=== PATIENT | female | born 1955 | race Caucasian/White ===

== ENCOUNTER → 2016-10-05 | Outpatient (CLI) | payer BC | LOC: LAB 19:41 | PROVIDERS: ATTEND Nurse Practitioner Family | DX: R30.0 Dysuria (principal) | CPT/HCPCS: 87088 ==

== ENCOUNTER → 2017-03-04 | Outpatient (CLI) | payer BC ==
[~2017-03-04] MED LIST: CEPH500T PO; ONDA4TAB11 PO; ROPI0.5T2; SULF-222 PO
--- NOTE | 2017-03-07 15:33 | Diagnostic Imaging Report ---
EXAMINATION: Bilateral screening mammogram 2D views with tomosynthesis. The current study was also evaluated with a Computer Aided Detection (CAD) system. INDICATION: Screening. PERSONAL HISTORY: No current complaints stated on the questionnaire. COMPARISON: 02/17/2016. FINDINGS: The breasts are composed of heterogeneously dense parenchyma which may decrease mammographic sensitivity. Allowing for technique and positional differences, no suspicious change is seen. IMPRESSION: Dense breasts with no definite change. ACR BI-RADS Category 2: Benign findings. Result letter will be mailed to the patient. Note: At least 10% of breast cancer is not imaged by mammography. Dictated by: Dictated on workstation # [id number]
== END ==
LOC: RAD 15:44
PROVIDERS: ATTEND Internal Medicine
DX: Z12.31 Encounter for screening mammogram for malignant neoplasm of breast (principal)
CPT/HCPCS: 77067

== ENCOUNTER 2017-03-19 19:08 | Emergency (ER) | payer BC ==
[~2017-03-19] VITALS: Ht 162.6 cm; Wt 48.1 kg
[2017-03-19] MEDS ORDERED: ROPI0.5T2 (19:57)
[2017-03-19 20:05] LABS: BILIRUBIN,URINE NEGATIVE (NEGATIVE); KETONES,URINE NEGATIVE (NEGATIVE); LEUKOCYTE ESTERASE ,URINE 3+ (NEGATIVE); NITRITE,URINE NEGATIVE (NEGATIVE); PH,URINE 6 (5-9); PROTEIN,URINE NEGATIVE (NEGATIVE); UROBILINOGEN,URINE NORMAL (NORMAL)
[2017-03-19] MEDS ORDERED: ACETAMINOPHEN 500 MG TAB (TYLENOL) PO ONE (20:15)
[2017-03-19] MEDS ORDERED: ONDANSETRON 4 MG (ZOFRAN) ORAL DISSOLVE TAB PO ONE (20:15)
[2017-03-19] MEDS ORDERED: TRIM/SULFAMETH 160/800 (SEPTRA DS) TAB PO STA (21:19)
[2017-03-19] MEDS ORDERED: SULF-222 PO (21:28)
--- NOTE | 2017-03-19 21:29 | ED GU-Female ---
General Chief Complaint: -Female Stated Complaint: UTI SYMPTOMS Nursing Triage Note: PAINFUL URINATION, DIFFICULTY EMPTYING BLADDER, GENERALIZED MALAISE Nursing Sepsis Screen: No Definite Risk Source: patient Exam Limitations: no limitations History of Present Illness Time seen by provider: 21:10 Initial Comments Here with report of bladder pain with some dysuria and just generally doesn't feel well. Did have some mild nausea but no vomiting. She took some ibuprofen earlier which helped a little. States this is typically how she feels when she has a urinary tract infection. Denies breathing problems or diarrhea. Timing/Duration: yesterday, getting worse Severity/Quality: moderate, aching, burning Location: suprapubic, urethral Radiation: urethral Activities at Onset: none Modifying Factors: Improves With Analgesics Associated Symptoms: abdominal pain, dysuria, fever/chills, No lower back pain , nausea/vomiting, urinary frequency Allergies and Home Medications Allergies Coded Allergies: No Known Drug Allergies (Unverified , 03/19/17) Home Medications Ropinirole HCl 0.5 Mg Tablet, (Reported) Constitutional: see HPI, No chills, fever EENTM: no symptoms reported Respiratory: no symptoms reported Cardiovascular: no symptoms reported Gastrointestinal: see HPI Genitourinary: see HPI Musculoskeletal: no symptoms reported, No back pain, No muscle pain Skin: no symptoms reported Past Qqgjcbv-Bujwqw-Oyypcn Hx Patient Social History Alcohol Use: Denies Use Recreational Drug Use: No Smoking Status: Never a Smoker 2nd Hand Smoke Exposure: No Recent Foreign Travel: No Contact w/Someone Who Travel: No Recent Infectious Disease Expo: No Recent Hopitalizations: No Immunizations Up To Date Tetanus Booster (TDap): Unknown Seasonal Allergies Seasonal Allergies: No Surgeries History of Surgeries: Yes (VSD REPAIR, LUMBAR LAMINECTOMY) Surgeries: Adenoidectomy, Cardiac, Orthopedic, Tonsillectomy Respiratory History of Respiratory Disorde: No Cardiovascular History of Cardiac Disorders: Yes (VSD REPAIR) Neurological History of Neurological Disord: No 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 System [employer] History: Menopausal Genitourinary History of Genitourinary Disor: Yes Genitourinary Disorders: UTI-Chronic Gastrointestinal History of Gastrointestinal Di: No Musculoskeletal History of Musculoskeletal Dis: Yes (RESTLESS LEGS) Endocrine History of Endocrine Disorders: No HEENT History of HEENT Disorders: No Cancer History of Cancer: No Psychosocial History of Psychiatric Problem: No Integumentary History of Skin or Integumenta: No Blood Transfusions History of Blood Disorders: No Reviewed Nursing Assessment Reviewed/Agree w Nursing PMH: Yes Family Medical History Significant Family History: No Pertinent Family Hx Physical Exam Vital Signs Vital Sign - Last 12Hours 03/19/17 19:58 Temp 98.1 Pulse 61 Resp 16 B/P (MAP) 117/78 Pulse Ox 98 O2 Delivery Room Air Capillary Refill : Less Than 3 Seconds General Appearance: WD/WN, no apparent distress Neck: full range of motion, supple Cardiovascular: regular rate, rhythm, no murmur Respiratory: lungs clear, normal breath sounds Gastrointestinal: soft, tenderness (mild suprapubic tenderness) Back: normal inspection, no CVA tenderness, no vertebral tenderness Neurologic/Psychiatric: alert, oriented x 3 Skin: normal color, warm/dry Progress/Results/Core Measures Results/Orders Lab Results Laboratory Tests Test 03/19/17 19:55 Range/Units Urine Color YELLOW Urine Clarity SLIGHTLY CLOUDY Urine pH 6 5-9 Urine Specific [place] 1.020 1.016-1.022 Urine Protein NEGATIVE NEGATIVE Urine Glucose (UA) NEGATIVE NEGATIVE Urine Ketones NEGATIVE NEGATIVE Urine Nitrite NEGATIVE NEGATIVE Urine Bilirubin NEGATIVE NEGATIVE Urine Urobilinogen NORMAL NORMAL MG/DL Urine Leukocyte Esterase 3+ H NEGATIVE Urine RBC (Auto) NEGATIVE NEGATIVE Urine RBC NONE /HPF Urine WBC 10-25 H /HPF Urine Squamous Epithelial Cells 5-10 /HPF Urine Crystals NONE /LPF Urine Bacteria TRACE /HPF Urine Casts NONE /LPF Urine Mucus NEGATIVE /LPF Urine Culture Indicated YES My Orders Orders - THOMAS VALDOVINOS MD Ua Culture If Indicated (03/19/17 19:53) Ondansetron Oral Dissolve Tab (Zofran (03/19/17 20:15) Acetaminophen Tablet (Tylenol Tablet) (03/19/17 20:15) Urine Culture (03/19/17 19:55) Sulfamethoxazole/Trimet Ds Tab (Bactrim (03/19/17 21:19) Medications Given in ED Current Medications Medications Dose Ordered Sig/Edita Route Start Time Stop Time Status Last Admin Dose Admin Acetaminophen 1,000 mg ONCE ONCE PO 03/19/17 20:15 03/19/17 20:16 DC 03/19/17 20:11 1,000 MG Vital Signs/I&O Vital Sign - Last 12Hours 10/7/17 10/7/17 19:58 20:11 Temp 98.1 98.1 Pulse 61 Resp 16 B/P (MAP) 117/78 Pulse Ox 98 O2 Delivery Room Air Blood Pressure Mean: 91 Progress Note : Progress Note Seen and evaluated. Bactrim DS one tab by mouth. Discharged home with return precautions. Patient verbalize understanding instructions and agreement with plan. Departure Impression Impression: Primary Impression: Urinary tract infection Qualified Codes: N30.00 - Acute cystitis without hematuria Disposition: HOME, SELF-CARE Condition: Stable Departure-Patient Inst. Referrals: JANET GARCÍA MD (PCP/Family) Primary Care Physician Patient Instructions: Urinary Tract Infection, Adult (DC) Add. Discharge Instructions: All discharge instructions reviewed with patient and/or family. Voiced understanding. Take medications as directed. Follow-up with your Dr. in a few days for recheck. Return for worsening, fever, vomiting, weakness, breathing problems or other concerns as needed. You may take Tylenol and/or ibuprofen as needed for fever or pain. Package directions. Drink plenty of fluids. Scripts Sulfamethoxazole/Trimethoprim (Sulfamethoxazole-Tmp Ds Tablet) 1 Each Tablet 1 EACH PO BID, #14 TAB 0 Refills Prov: THOMAS VALDOVINOS MD 03/19/17 THOMAS VALDOVINOS MD Mar 19, 2017 21:29
[2017-03-19] MEDS ORDERED: ONDA4TAB11 PO (21:31)
[2017-03-19 21:32] VITALS: BP 117/78
== END 2017-03-19 21:32 | disposition home or self-care (01) ==
LOC: EDUNIT# 19:08 → ER 19:10
DX: N39.0 Urinary tract infection, site not specified (principal); Q21.0 Ventricular septal defect; Z90.89 Acquired absence of other organs; Z98.1 Arthrodesis status
CPT/HCPCS: 81000; 87088; 99283

== ENCOUNTER 2017-03-22 02:50 | Emergency (ER) | payer BC ==
[~2017-03-22] VITALS: Ht 162.6 cm; Wt 48.1 kg
[~2017-03-22 02:50] MED LIST changes: -CEPH500T PO
--- NOTE | 2017-03-22 03:11 | ED GU-Female ---
General Chief Complaint: -Female Stated Complaint: UTI GETTING WORSE Source: patient, old records Exam Limitations: no limitations History of Present Illness Time seen by provider: 03:02 Initial Comments Patient presents to ER by private conveyance with a chief complaint that 3 days prior she was seen in the ER for urinary symptoms and was treated with Bactrim for UTI. She feels that she is not any better still has some nausea without vomiting and a headache. She is unable to take any time off from her work because of a crunch and does not feel that she has improved much. She does not think Bactrim is working. She was going to go see Dr. García, her PCP but could not wait. She has no shortness of breath, cough, chest pain, abdominal pain, weakness, fevers, diarrhea, constipation. She still has mild dysuria. Allergies and Home Medications Allergies Coded Allergies: No Known Drug Allergies (Unverified , 03/19/17) Home Medications Ondansetron 4 Mg Tab.rapdis, 4 MG PO Q6H PRN for NAUSEA/VOMITING, #8 Ref 0 Prescribed by: THOMAS VALDOVINOS on 03/19/172130 Ropinirole HCl 0.5 Mg Tablet, (Reported) Sulfamethoxazole/Trimethoprim 1 Each Tablet, 1 EACH PO BID, #14 Ref 0 Prescribed by: THOMAS VALDOVINOS on 03/19/172127 Constitutional: No chills, No diaphoresis, No fever, No malaise EENTM: No ear pain, No eye pain Respiratory: No cough, No short of breath Cardiovascular: No chest pain, No palpitations Gastrointestinal: No abdominal pain, No constipation, No diarrhea, nausea, No vomiting Genitourinary: denies burning, denies discharge, dysuria : No Musculoskeletal: No back pain, No joint pain, No joint swelling Skin: No pruritus, No rash Psychiatric/Neurological: Headache, Denies Numbness, Denies Paresthesia Past Uffqssv-Bcgyit-Rmiptk Hx Patient Social History Alcohol Use: Denies Use Recreational Drug Use: No Smoking Status: Never a Smoker 2nd Hand Smoke Exposure: No Recent Foreign Travel: Yes Contact w/Someone Who Travel: Yes Recent Hopitalizations: No Immunizations Up To Date Tetanus Booster (TDap): Unknown Seasonal Allergies Seasonal Allergies: No Surgeries History of Surgeries: Yes (VSD REPAIR, LUMBAR LAMINECTOMY) Surgeries: Adenoidectomy, Cardiac, Orthopedic, Tonsillectomy Respiratory History of Respiratory Disorde: No Cardiovascular History of Cardiac Disorders: Yes (VSD REPAIR) Neurological History of Neurological Disord: No 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 Genitourinary History of Genitourinary Disor: Yes Genitourinary Disorders: UTI-Chronic Gastrointestinal History of Gastrointestinal Di: No Musculoskeletal History of Musculoskeletal Dis: Yes (RESTLESS LEGS) Endocrine History of Endocrine Disorders: No HEENT History of HEENT Disorders: No Cancer History of Cancer: No Psychosocial History of Psychiatric Problem: No Integumentary History of Skin or Integumenta: No Blood Transfusions History of Blood Disorders: No Family Medical History Significant Family History: No Pertinent Family Hx Physical Exam Vital Signs Vital Sign - Last 12Hours 03/22/17 03:03 Temp 98.2 Pulse 70 Resp 16 B/P (MAP) 123/54 Pulse Ox 99 O2 Delivery Room Air Capillary Refill : General Appearance: WD/WN, mild distress HEENT: PERRL/EOMI, pharynx normal Cardiovascular: normal peripheral pulses, regular rate, rhythm Respiratory: chest non-tender, lungs clear, normal breath sounds Gastrointestinal: normal bowel sounds, soft, tenderness (diffusely mildly tender) Back: normal inspection, no CVA tenderness Extremities: normal inspection, no pedal edema, normal capillary refill Neurologic/Psychiatric: alert, normal mood/affect, oriented x 3 Skin: normal color, warm/dry Progress/Results/Core Measures Results/Orders Lab Results Laboratory Tests Test 03/22/17 03:06 Range/Units Urine Color YELLOW Urine Clarity CLEAR Urine pH 7 5-9 Urine Specific [place] 1.015 L 1.016-1.022 Urine Protein NEGATIVE NEGATIVE Urine Glucose (UA) NEGATIVE NEGATIVE Urine Ketones NEGATIVE NEGATIVE Urine Nitrite NEGATIVE NEGATIVE Urine Bilirubin NEGATIVE NEGATIVE Urine Urobilinogen NORMAL NORMAL MG/DL Urine Leukocyte Esterase 3+ H NEGATIVE Urine RBC (Auto) NEGATIVE NEGATIVE Urine RBC NONE /HPF Urine WBC 10-25 H /HPF Urine Squamous Epithelial Cells 0-2 /HPF Urine Crystals NONE /LPF Urine Bacteria FEW H /HPF Urine Casts NONE /LPF Urine Mucus NEGATIVE /LPF Urine Culture Indicated YES My Orders Orders - KATELYN YUSUF Ua Culture If Indicated (03/22/17 03:04) Ondansetron Oral Dissolve Tab (Zofran (03/22/17 03:15) Urine Culture (03/22/17 03:06) Medications Given in ED Current Medications Medications Dose Ordered Sig/Edita Route Start Time Stop Time Status Last Admin Dose Admin Ondansetron HCl 4 mg ONCE ONCE PO 03/22/17 03:15 03/22/17 03:16 DC 03/22/17 03:08 4 MG Vital Signs/I&O Vital Sign - Last 12Hours 03/22/17 03:03 Temp 98.2 Pulse 70 Resp 16 B/P (MAP) 123/54 Pulse Ox 99 O2 Delivery Room Air Progress Note : Time: 03:09 Progress Note Vital signs are okay and her clinical exam is not that remarkable. We will go ahead and reobtained a urine. Her previous urine culture showed greater than 100 ,000 CFU's group B strep, staph coag negative ten to 100,000 CFU's and corynebacterium ten to 100,000 CFU's. There were 5-10 squamous epithelial cells noted on the UA per high-powered field. This may represent some contamination. Her Bactrim should've worked pretty well for her bacterial or isolated. She describes quite a bit of stress at work and inability to get rest due to headache and nausea. We'll offer her something for her nausea to go as well. Typically expect 3-4 days before seeing any improvement on antibiotics. It's barely into the third day. Also recommend she take probiotics. Departure Impression Impression: Primary Impression: Urinary tract infection Qualified Codes: N30.00 - Acute cystitis without hematuria Disposition: HOME, SELF-CARE Condition: Stable Departure-Patient Inst. Decision time for Depature: 03:35 Referrals: JANET GARCÍA MD (PCP/Family) Primary Care Physician Patient Instructions: Urinary Tract Infection, Adult (DC) Add. Discharge Instructions: Please drink plenty of fluids. Caffeine is encouraged. Plan on following up with your primary care physician in 2-3 days and have them check on the results of the urine culture obtained tonight. 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 set up machinist some probiotics use those twice a day as well area All discharge instructions reviewed with patient and/or family. Voiced understanding. Scripts Cephalexin (Cephalexin) 500 Mg Tablet 500 MG PO BID for 5 Days, #10 TAB 0 Refills Prov: KATELYN YUSUF 03/22/17 Copy Copies To 1: JANET GARCÍA MD, TITUS J Mar 22, 2017 03:11
[2017-03-22 03:12] LABS: BILIRUBIN,URINE NEGATIVE (NEGATIVE); KETONES,URINE NEGATIVE (NEGATIVE); LEUKOCYTE ESTERASE ,URINE 3+ (NEGATIVE); NITRITE,URINE NEGATIVE (NEGATIVE); PH,URINE 7 (5-9); PROTEIN,URINE NEGATIVE (NEGATIVE); UROBILINOGEN,URINE NORMAL (NORMAL)
[2017-03-22] MEDS ORDERED: ONDANSETRON 4 MG (ZOFRAN) ORAL DISSOLVE TAB PO ONE (03:15)
[2017-03-22 03:26] LABS: SQUAMOUS EPITHELIAL CELL,UR 0-2 /HPF
[2017-03-22] MEDS ORDERED: CEPH500T PO (03:38)
[2017-03-22 03:41] VITALS: BP 123/54
== END 2017-03-22 03:40 | disposition home or self-care (01) ==
LOC: EDUNIT# 02:50 → ER 02:52
DX: N39.0 Urinary tract infection, site not specified (principal); Z90.89 Acquired absence of other organs; Z98.1 Arthrodesis status
CPT/HCPCS: 81000; 87088; 99283

== ENCOUNTER → 2018-03-07 | Outpatient (CLI) | payer BC ==
[~2018-03-07] MED LIST changes: +CEPH500T PO
--- NOTE | 2018-03-08 18:03 | Diagnostic Imaging Report ---
The current study was also evaluated with a Computer Aided Detection (CAD) system. 3-D tomosynthesis was also performed and reviewed. INDICATION: Digital mammogram bilateral screening. This study was compared to the prior exams of 03/04/2017, 02/17/2016 and 01/15/2015. At this time, there are no current complaints. FINDINGS: The fibroglandular tissue in both breasts is heterogeneously dense. This does limit the sensitivity of this exam. Overall, there does not appear to have been any significant change when compared to the prior study. No primary or secondary sign of malignancy is noted. 3D tomographic images fail to show any sign of malignancy. IMPRESSION: There is no radiographic evidence for malignancy. ACR BI-RADS Category 1: Negative. Result letter will be mailed to the patient. Note: At least 10% of breast cancer is not imaged by mammography. Dictated by: Dictated on workstation # [id number]
== END ==
LOC: RAD 15:26
PROVIDERS: ATTEND Internal Medicine
DX: Z12.31 Encounter for screening mammogram for malignant neoplasm of breast (principal)
CPT/HCPCS: 77067

== ENCOUNTER 2018-03-29 08:16 | Outpatient (CLI) | payer BC ==
[~2018-03-29] VITALS: Ht 162.6 cm; Wt 48.1 kg
[~2018-03-29 08:16] MED LIST changes: +BIMA2.5D4 OP; +ESTR10TA VG; +OXYB5TAB9 PO
== END 2018-03-29 08:35 | disposition home or self-care (01) ==
LOC: PREOP 08:16
PROVIDERS: ATTEND Internal Medicine
DX: Z01.818 Encounter for other preprocedural examination (principal)

== ENCOUNTER 2018-03-31 06:58 | Day surgery (SDC) | payer BC ==
--- NOTE | 2018-03-09 19:46 | HISTORY AND PHYSICAL ---
DATE OF SERVICE: 03/31/2018 COLONOSCOPY HISTORY AND PHYSICAL Seen today on 03/02/2018. HISTORY OF PRESENT ILLNESS: The patient is a 63-year-old white female seen for yearly wellness evaluation. It had been over 10 years since her last colonoscopy, so she is set up for screening colonoscopy on 03/31/2018. She is deemed to be of average risk as she is not aware of any family history for colon cancer or colon polyps. She denies any problems with bowel habit change and has noted no bright red blood per rectum or melena. She reports that she has been feeling well. She continues to exercise on a regular basis and voices no complaints. 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 UPDATED FAMILY HISTORY: Mother of complications of hip fracture at the age of 92. Father of dementia with pneumonia in his early 80s. PAST SURGICAL HISTORY: Significant for VSD repair as a child with no complication. PHYSICAL EXAMINATION: GENERAL: Reveals a thin white female who appears to be in no acute distress. VITAL SIGNS: Weight was up 1.8 pounds compared to 6 months ago, in the middle of her normal weight range; blood pressure 120/66, heart rate 72 and regular. HEENT: Unremarkable. Sclerae nonicteric. No evidence for pallor is noted. She is a Mallampati class 1 oropharyngeal configuration. Pharynx reveals no erythema. CHEST: Clear to auscultation. CARDIOVASCULAR: Reveals a regular rate and rhythm without murmur, S3 or S4. ABDOMEN: Soft, supple without mass, organomegaly or tenderness. EXTREMITIES: Reveal no cyanosis, clubbing or edema. SKIN: Evaluation did reveal an actinic keratosis on the back of her right hand. She underwent cryotherapy to this lesion. BREASTS: Revealed no masses, dimpling, discharge or axillary adenopathy. She will be obtaining a mammogram now later this week, yearly screening. ASSESSMENT AND PLAN: 1. Normal wellness evaluation. We will see back for yearly wellness checks. 2. The patient was set up for screening colonoscopy on 03/31/2018. Prep instructions with Suprep kit were given and questions were answered. 3. Actinic keratoses on the back of the right hand. Cryotherapy performed. Expectations were discussed. Any evidence for recurrence, she is to return and we will plan repeat skin evaluation yearly. Job ID: [id number] DocumentID: [id number] Dictated Date: 03/02/2018 15:04:00 Inspector [employer] Date: 03/02/2018 15:27:21 Dictated By: JANET GARCÍA MD
[~2018-03-31] VITALS: Ht 162.6 cm; Wt 48.1 kg
[2018-03-31] MEDS ORDERED: D5 LR IV SOLUTION 1,000 ML IV ONE (07:06)
--- OUTSIDE RECORDS SUMMARY | 2018-03-31 07:06 | XMS REPORT | Continuity of Care Document ---
Author Author [facility] Organization [facility] Address Unknown Phone Unavailable Allergies Active Description Code Type Severity Reaction Onset Reported/Identified Relationship to Patient Clinical Status Yes No Known Drug Allergies [id number] Drug Allergy Unknown N/A 03/19/2017 Medications There is no data. Problems Date Dx Coded Attending Type Code Diagnosis Diagnosed By 10/30/2014 Ot V76.12 10/30/2014 Ot V76.12 01/30/2015 JANET GARCÍA MD Ot V76.12 02/12/2016 Ot V76.12 OTH SCREEN MAMMO-MALIGN NEOPLASM OF [place] 02/17/2016 JANET GARCÍA MD Ot 733.90 BONE CARTILAGE DIS NOS 02/17/2016 JANET GARCÍA MD Ot V76.12 OTH SCREEN MAMMO-MALIGN NEOPLASM OF [place] 02/17/2016 JANET GARCÍA MD Ot V76.12 OTH SCREEN MAMMO-MALIGN NEOPLASM OF [place] 02/19/2016 JANET GARCÍA MD Ot Z12.31 ENCNTR SCREEN MAMMOGRAM FOR MALIGNANT NE 02/20/2016 Ot V76.12 OTH SCREEN MAMMO-MALIGN NEOPLASM OF [place] 03/03/2016 JANET GARCÍA MD Ot Z12.31 ENCNTR SCREEN MAMMOGRAM FOR MALIGNANT NE 10/28/2016 ALBAN WALTER LAST TRIMMER Ot R30.0 DYSURIA 03/04/2017 JANET GARCÍA MD Ot 733.90 BONE CARTILAGE DIS NOS 03/04/2017 JANET GARCÍA MD Ot V76.12 OTH SCREEN MAMMO-MALIGN NEOPLASM OF [place] 03/04/2017 JANET GARCÍA MD Ot V76.12 OTH SCREEN MAMMO-MALIGN NEOPLASM OF [place] 03/04/2017 JANET GARCÍA MD Ot Z12.31 ENCNTR SCREEN MAMMOGRAM FOR MALIGNANT NE 03/04/2017 ALBAN WALTER LAST TRIMMER Ot R30.0 DYSURIA 03/16/2017 JANET GARCÍA MD Ot Z12.31 ENCNTR SCREEN MAMMOGRAM FOR MALIGNANT NE 03/19/2017 THOMAS VALDOVINOS MD Ot N39.0 URINARY TRACT INFECTION, SITE NOT SPECIF 03/19/2017 THOMAS VALDOVINOS MD Ot Q21.0 VENTRICULAR SEPTAL DEFECT 03/19/2017 THOMAS VALDOVINOS MD Ot R30.0 DYSURIA 03/19/2017 THOMAS VALDOVINOS MD Ot Z90.89 ACQUIRED ABSENCE OF OTHER ORGANS 03/19/2017 THOMAS VALDOVINOS MD Ot Z98.1 ARTHRODESIS STATUS 03/21/2017 THOMAS VALDOVINOS MD Ot N39.0 URINARY TRACT INFECTION, SITE NOT SPECIF 03/21/2017 THOMAS VALDOVINOS MD Ot Q21.0 VENTRICULAR SEPTAL DEFECT 03/21/2017 THOMAS VALDOVINOS MD Ot R30.0 DYSURIA 03/21/2017 THOMAS VALDOVINOS MD Ot Z90.89 ACQUIRED ABSENCE OF OTHER ORGANS 03/21/2017 THOMAS VALDOVINOS MD Ot Z98.1 ARTHRODESIS STATUS 03/22/2017 KATELYN YUSUF MD Ot N39.0 URINARY TRACT INFECTION, SITE NOT SPECIF 03/22/2017 SHAWN YUSUF MDUS J Ot Z90.89 ACQUIRED ABSENCE OF OTHER ORGANS 03/22/2017 KATELYN YUSUF MD J Ot Z98.1 ARTHRODESIS STATUS 03/25/2017 THOMAS VALDOVINOS MD Ot N39.0 URINARY TRACT INFECTION, SITE NOT SPECIF 03/25/2017 THOMAS VALDOVINOS MD Ot Q21.0 VENTRICULAR SEPTAL DEFECT 03/25/2017 THOMAS VALDOVINOS MD Ot R30.0 DYSURIA 03/25/2017 THOMAS VALDOVINOS MD Ot Z90.89 ACQUIRED ABSENCE OF OTHER ORGANS 03/25/2017 THOMAS VALDOVINOS MD Ot Z98.1 ARTHRODESIS STATUS 03/08/2018 JANET GARCÍA MD Ot Z12.31 ENCNTR SCREEN MAMMOGRAM FOR MALIGNANT NE 03/22/2018 JANET GARCÍA MD Ot Z12.31 ENCNTR SCREEN MAMMOGRAM FOR MALIGNANT NE 03/24/2018 JANET GARCÍA MD Ot Z01.818 ENCOUNTER FOR OTHER PREPROCEDURAL EXAMIN Procedures There is no data. Results Test Result Range Bacterial urine culture - 10/05/16 17:20 Bacterial urine culture [id number] NRG COLONY COUNT <10,000 NRG FREE TEXT ENTRY 2 MIXED GRAM POSITIVE ROLY <10,000/ML NRG Complete urinalysis with reflex to culture - 03/19/17 19:55 Urine color determination YELLOW NRG Urine clarity determination SLIGHTLY CLOUDY NRG Urine pH measurement by test strip 6 5-9 Specific gravity of urine by test strip 1.020 1.016- 1.022 Urine protein assay by test strip, semi-quantitative NEGATIVE NEGATIVE Urine glucose detection by automated test strip NEGATIVE NEGATIVE Erythrocytes detection in urine sediment by light microscopy NEGATIVE NEGATIVE Urine ketones detection by automated test strip NEGATIVE NEGATIVE Urine nitrite detection by test strip NEGATIVE NEGATIVE Urine total bilirubin detection by test strip NEGATIVE NEGATIVE Urine urobilinogen measurement by automated test strip (mass/volume) NORMAL NORMAL Urine leukocyte esterase detection by dipstick 3+ NEGATIVE Automated urine sediment erythrocyte count by microscopy (number/high power field) NONE NRG Automated urine sediment leukocyte count by microscopy (number/high power field ) [HPF] NRG Bacteria detection in urine sediment by light microscopy TRACE NRG Squamous epithelial cells detection in urine sediment by light microscopy 5-10 NRG Crystals detection in urine sediment by light microscopy NONE NRG Casts detection in urine sediment by light microscopy NONE NRG Mucus detection in urine sediment by light microscopy NEGATIVE NRG Complete urinalysis with reflex to culture YES NRG Bacterial urine culture - 03/19/17 19:55 Bacterial urine culture [id number] NRG COLONY COUNT 10,000/ML - 100,000/ML NRG Complete urinalysis with reflex to culture - 03/22/17 03:06 Urine color determination YELLOW NRG Urine clarity determination CLEAR NRG Urine pH measurement by test strip 7 5-9 Specific gravity of urine by test strip 1.015 1.016- 1.022 Urine protein assay by test strip, semi-quantitative NEGATIVE NEGATIVE Urine glucose detection by automated test strip NEGATIVE NEGATIVE Erythrocytes detection in urine sediment by light microscopy NEGATIVE NEGATIVE Urine ketones detection by automated test strip NEGATIVE NEGATIVE Urine nitrite detection by test strip NEGATIVE NEGATIVE Urine total bilirubin detection by test strip NEGATIVE NEGATIVE Urine urobilinogen measurement by automated test strip (mass/volume) NORMAL NORMAL Urine leukocyte esterase detection by dipstick 3+ NEGATIVE Automated urine sediment erythrocyte count by microscopy (number/high power field) NONE NRG Automated urine sediment leukocyte count by microscopy (number/high power field ) [HPF] NRG Bacteria detection in urine sediment by light microscopy FEW NRG Squamous epithelial cells detection in urine sediment by light microscopy 0-2 NRG Crystals detection in urine sediment by light microscopy NONE NRG Casts detection in urine sediment by light microscopy NONE NRG Mucus detection in urine sediment by light microscopy NEGATIVE NRG Complete urinalysis with reflex to culture YES NRG Bacterial urine culture - 03/22/17 03:06 URINE CULTURE RESULTS <10,000/ML NRG Encounters ACCT No. Visit Date/Time Discharge Status Pt. Type Provider Facility Loc./Unit Complaint [id number] 03/23/2018 05:41:00 03/23/2018 23:59:59 CLS Outpatient JANET GARCÍA MD [facility] PREOP COLONOSCOPY [id number] 03/07/2018 15:26:00 03/07/2018 23:59:59 CLS Outpatient JANET GARCÍA MD [facility] RAD SCREENING [id number] 03/22/2017 02:52:00 03/22/2017 03:40:00 DIS Emergency KATELYN YUSUF MD [facility] ER UTI GETTING WORSE [id number] 03/19/2017 19:10:00 03/19/2017 21:32:00 DIS Emergency THOMAS VALDOVINOS MD [facility] ER UTI SYMPTOMS [id number] 03/04/2017 15:44:00 03/04/2017 23:59:59 CLS Outpatient JANET GARCÍA MD [facility] RAD SCREENING Z12.31 [id number] 10/05/2016 19:41:00 10/05/2016 23:59:59 CLS Outpatient ALBAN WALTER APRN [facility] LAB [id number] 02/17/2016 14:21:00 02/17/2016 23:59:59 CLS Outpatient JANET GARCÍA MD [facility] RAD SCREENING [id number] 01/15/2015 10:39:00 01/15/2015 23:59:59 CLS Outpatient JANET GARCÍA MD [facility] RAD SCREENING [id number] 12/27/2013 11:22:00 12/27/2013 23:59:59 CLS Outpatient JANET GARCÍA MD [facility] RAD SCREENING,RISK FACTORS FOR OSTEOPOROSIS [id number] 12/13/2012 14:43:00 12/13/2012 23:59:59 CLS Outpatient [id number] 03/31/2018 08:00:00 [facility] JANET GARCÍA MD [facility] ENDO SCREENING [id number] 04/16/2011 15:25:00 Document Registration [id number] 03/26/2010 13:05:00 Document Registration [email or web address] 01/15/2015 10:39:34 ACT Document Registration
[2018-03-31] MEDS ORDERED: D5 LR IV SOLUTION 1,000 ML IV STA (07:14)
[2018-03-31] MEDS ORDERED: MIDAZOLAM 2 MG/2 ML (VERSED) VIAL IVP ONE (07:15)
[2018-03-31] MEDS ORDERED: LIDOCAINE JELLY 2% 6 ML SYRINGE MM PRN (07:15)
[2018-03-31] MEDS ORDERED: fentaNYL INJECTION 100 MCG/2 ML AMP IVP ONE (07:15)
[2018-03-31 07:26] VITALS: BP 111/69
[2018-03-31] MEDS ORDERED: fentaNYL INJECTION 100 MCG/2 ML AMP ONE (07:54)
[2018-03-31] MEDS ORDERED: LIDOCAINE JELLY 2% 6 ML SYRINGE ONE (07:54)
[2018-03-31] MEDS ORDERED: MIDAZOLAM 2 MG/2 ML (VERSED) VIAL ONE ×2 (07:55)
--- NOTE | 2018-03-31 08:02 | Pre-Op Note & Conscious Sedat ---
Pre-Operative Progress Note H&P Reviewed The H&P was reviewed, patient examined and no changes noted. Date H&P Reviewed: Mar 31, 2018 Time H&P Reviewed: 07:55 Conscious Sedation Pre-Proced ASA Score 2 For ASA 3 and 4: Consider anesthesia and medical clearance. Also, for patients with a history of failed moderate sedation consider anesthesia. Airway Lungs Heart ASA score ASA 1: a normal healthy patient ASA 2: a patient with a mild systemic disease (mid diabetes, controlled hypertension, obesity ASA 3: a patient with a severe systemic disease that limits activity (angina , COPD, prior Myocardial infarction) ASA 4: a patient with an incapacitating disease that is a constant threat to life (CHF, renal failure) ASA 5: a moribund patient not expected to survive 24 hrs. (ruptured aneurysm) ASA 6: a declared brain patient whose organs are being harvested. For emergent operations, add the letter E after the classification Mallampati Classification Grade 1 Sedation Plan Analgesia, Amnesia, Plan communicated to team members, Discussed options with patient/fam, Discussed risks with patient/fam The patient is an appropriate candidate to undergo the planned procedure, sedation, and anesthesia. The patient immediately re-assessed prior to indication. JANET GARCÍA MD Mar 31, 2018 08:02
[2018-03-31 08:45] VITALS: BP 127/63
[2018-03-31 09:15] VITALS: BP 107/62
[2018-03-31 09:40] VITALS: BP 107/62
--- NOTE | 2018-03-31 18:48 | OPERATIVE REPORT ---
DATE OF SERVICE: 03/31/2018 COLONOSCOPY SUMMARY PRIMARY CARE PROVIDER: Janet García MD. INDICATION FOR PROCEDURE: Screening colonoscopy. DESCRIPTION OF PROCEDURE: The patient was placed in the left lateral decubitus position. Prior to doing colonoscopy, digital rectal evaluation was performed. Anal sphincter tone was normal and the perianal reflex was intact. No abnormalities were noted to digital inspection of anal canal or distal rectal vault. The colonoscope was then inserted into the rectum under direct visualization advanced to cecum. The cecum was identified by identification of the ileocecal valve and cecal strap. Photographic documentation was obtained. Careful inspection was made as the colonoscope was withdrawn. The patient tolerated the procedure well. FINDINGS: There is no evidence for internal or external hemorrhoids. The rectum was unremarkable. Several small sigmoid diverticulum were present without evidence of diverticulitis. No other sigmoid colonic abnormalities were noted. The descending colon, splenic flexure, transverse colon, hepatic flexure, ascending colon and cecum were unremarkable. ASSESSMENT: Mild diverticular disease by the sigmoid colon was present otherwise normal colonoscopy to cecum. We would advocate consideration for repeat screening colonoscopy in 10 years as the patient is not aware of any family history for colon cancer. Job ID: [id number] DocumentID: [id number] Dictated Date: 03/31/2018 11:14:16 Curriculum Developer Date: 03/31/2018 18:47:14 Dictated By: JANET GARCÍA MD
== END 2018-03-31 09:40 | disposition home or self-care (01) ==
LOC: ENDO 06:58
PROVIDERS: ATTEND Internal Medicine
DX: Z12.11 Encounter for screening for malignant neoplasm of colon (principal); K57.30 Diverticulosis of large intestine without perforation or abscess without bleeding

== ENCOUNTER → 2019-03-12 | Outpatient (CLI) | payer BC ==
--- NOTE | 2019-03-15 19:05 | Diagnostic Imaging Report ---
EXAMINATION: Digital mammogram bilateral screening. The current study was also evaluated with a Computer Aided Detection (CAD) system. 3-D tomosynthesis was also performed and reviewed. INDICATION: Screening. This study was compared to the prior exams of 03/07/2018, 03/04/2017, and 02/17/2016. At this time, there are no current complaints. FINDINGS: The fibroglandular tissue in both breasts is heterogeneously dense. This does limit the sensitivity of this exam. Overall, there does not appear to have been any significant change when compared to the prior study. No primary or secondary sign of malignancy is noted. 3D tomographic images fail to show any sign of malignancy. IMPRESSION: There is no radiographic evidence for malignancy. ACR BI-RADS Category 1: Negative. Result letter will be mailed to the patient. Note: At least 10% of breast cancer is not imaged by mammography. Dictated on workstation # [id number]
== END ==
LOC: RAD 15:10
PROVIDERS: ATTEND Internal Medicine
DX: Z12.31 Encounter for screening mammogram for malignant neoplasm of breast (principal)
CPT/HCPCS: 77067

== ENCOUNTER → 2020-03-17 | Outpatient (CLI) | payer BC ==
[~2020-03-17] MED LIST changes: +OXYB5TAB13 PO; -OXYB5TAB9 PO; -ROPI0.5T2; +ROPI0.5T4
--- NOTE | 2020-03-18 12:55 | Diagnostic Imaging Report ---
INDICATION: Routine screening. COMPARISON: 03/12/2019 and 03/07/2018. TECHNIQUE: 2D and 3D bilateral screening mammography was performed with CAD. FINDINGS: Both breasts are heterogeneously dense, limiting the sensitivity of mammography. The parenchymal pattern is stable. No mass or malignant appearing microcalcifications are seen. The axillae are unremarkable. IMPRESSION: No mammographic features suspicious for malignancy are identified. ACR BI-RADS Category 1: Negative. Result letter will be mailed to the patient. Note: At least 10% of breast cancer is not imaged by mammography. Dictated by: Dictated on workstation # [id number]
== END ==
LOC: RAD 15:30
PROVIDERS: ATTEND Internal Medicine
DX: Z12.31 Encounter for screening mammogram for malignant neoplasm of breast (principal)
CPT/HCPCS: 77063; 77067

== ENCOUNTER → 2021-03-18 | Outpatient (CLI) | payer BC ==
--- NOTE | 2021-03-19 09:54 | Diagnostic Imaging Report ---
Indication: Routine screening. Comparison is made with prior mammogram from 03/17/2020 and 03/12/2019. 2-D and 3-D bilateral screening mammography was performed with CAD. Both breasts are heterogeneously dense, limiting the sensitivity of mammography. No mass or malignant-appearing microcalcifications are seen. Axillae are unremarkable. IMPRESSION: BI-RADS Category 1 No mammographic features suspicious for malignancy are identified. ACR BI-RADS Category 1: Negative. Result letter will be mailed to the patient. Note: At least 10% of breast cancer is not imaged by mammography. Dictated by: Dictated on workstation # [id number]
== END ==
LOC: RAD 15:17
PROVIDERS: ATTEND Internal Medicine
DX: Z12.31 Encounter for screening mammogram for malignant neoplasm of breast (principal)
CPT/HCPCS: 77063; 77067

== ENCOUNTER → 2022-02-24 | Outpatient (CLI) | payer BC ==
--- NOTE | 2022-02-24 17:00 | Diagnostic Imaging Report ---
INDICATION: Pain status post injury. COMPARISON: Foot radiographs from this same day. FINDINGS: Multiple radiographic views of the toes of the left foot were obtained and show an acute obliquely oriented fracture involving the proximal margins of the 4th proximal phalanx. There is minimal displacement of the fracture fragments. There is no evidence of intra-articular extension. No unexpected radiopaque foreign bodies are identified. IMPRESSION: Acute fracture of the 4th proximal phalanx as above. Dictated by: Dictated on workstation # [id number]
--- NOTE | 2022-02-24 17:00 | Diagnostic Imaging Report ---
INDICATION: Pain status post traumatic injury. COMPARISON: None. FINDINGS: Multiple radiographic views of the left foot were obtained. There is an acute appearing obliquely oriented fracture of the proximal portions of the 4th proximal phalanx. There is minimal displacement of the fracture fragments. There is no evidence of intra-articular extension. The remaining osseous structures are intact. The joint spaces are preserved. No unexpected radiopaque foreign bodies are identified. IMPRESSION: Acute appearing fracture of the 4th proximal phalanx as above. Dictated by: Dictated on workstation # [id number]
== END ==
LOC: RAD 15:21
PROVIDERS: ATTEND Nurse Practitioner Family
DX: S92.912A Unspecified fracture of left toe(s), initial encounter for closed fracture (principal); X58.XXXA Exposure to other specified factors, initial encounter
CPT/HCPCS: 73630; 73660

== ENCOUNTER → 2022-04-20 | Outpatient (CLI) | payer BC ==
--- NOTE | 2022-04-20 11:46 | Diagnostic Imaging Report ---
INDICATION: Postmenopausal state. COMPARISON: 12/27/2013 FINDINGS: AP Spine L1-L4: [BMD (g/cm2): 0.916] [T-Score: -2.4] [Z-Score: -0.3] [BMD Previous: 1.040] [BMD % Change: -11.9]* LT Hip Neck: [BMD (g/cm2): 0.885] [T-Score: -1.1] [Z-Score: 0.7] LT Hip Total: [BMD (g/cm2):0.824] [T-Score:-1.5] [Z-Score: 0.1] [BMD Previous: 0.861] [BMD % Change: -4.3] RT Hip Neck: [BMD (g/cm2):0.907] [T-Score:-0.9] [Z-Score:0.8] RT Hip Total: [BMD (g/cm2):0.839] [T-score:-1.3] [Z-Score:0.2] [BMD Previous:0.859] [BMD % Change:-2.3] *Indicates significant change from prior examination based on 95% confidence level. World Health Organization criteria for BMD interpretation classify patients as Normal (T-score at or above -1.0), Osteopenic (T-score between -1.0 and -2.5) or Osteoporotic (T-score at or below -2.5). LIMITATIONS AND MODIFICATION: None. FRACTURE RISK (FRAX SCORE): The ten year probability of (%): Major Osteoporotic Fracture: [13.6] Hip Fracture: [0.6] IMPRESSION: 1. Osteopenia (Low bone mass). 2. Bone mineral density has decreased by a statistically significant amount, as detailed above. 3. See below National Osteoporosis Foundation guidelines on when to potentially initiate pharmacologic therapy. Based on the National Osteoporosis Foundation Guidelines, pharmacologic treatment should be initiated in any of the following, unless clinical conditions suggest otherwise: * Any patient with prior fragility fracture of the hip or vertebrae. A spine fracture indicates 5X risk for subsequent spine fracture and 2X risk for subsequent hip fracture. * Osteoporosis (T-score <-2.5). * Postmenopausal women and men age 50 and older with low bone mass/osteopenia (T-score between -1.0 and -2.5) by DXA and 10-year major osteoporotic fracture greater than 20% or a 10-year probability of hip fracture greater than 3%. These fracture risks are supplied above in the FRAX score, if applicable. * Clinician judgement and/or patient preferences may indicate treatment for people with 10-year fracture probabilities above or below these levels. Dictated by: Dictated on workstation # [id number]
--- NOTE | 2022-04-20 20:48 | Diagnostic Imaging Report ---
3D bilateral screening mammogram. The current study was also evaluated with a Computed Aided Detection (CAD) system. COMPARISONS: 03/18/2021, 03/17/2020 and 03/12/2019. There are no current complaints. FINDINGS: The fibroglandular tissue in both breasts is heterogeneously dense. This does limit the sensitivity of this exam. When compared to the previous study there does not appear to have been any significant change. There is no primary or secondary sign of malignancy noted. IMPRESSION: There is no evidence for malignancy. BI-RADS CATEGORY: 1 NEGATIVE ACR BI-RADS Category 1: Negative. Result letter will be mailed to the patient. Note: At least 10% of breast cancer is not imaged by mammography. Dictated by: Dictated on workstation # [id number]
== END ==
LOC: RAD 10:15
PROVIDERS: ATTEND Internal Medicine
DX: Z12.31 Encounter for screening mammogram for malignant neoplasm of breast (principal); M85.80 Other specified disorders of bone density and structure, unspecified site; Z78.0 Asymptomatic menopausal state
CPT/HCPCS: 77063; 77067; 77080

== ENCOUNTER 2022-11-24 05:37 | Outpatient (CLI) | payer BC ==
[~2022-11-24] VITALS: Ht 162.6 cm; Wt 52.2 kg
[2022-11-24] MEDS ORDERED: VORT10TA PO (09:50)
[2022-11-24] MEDS ORDERED: AMPH5CAP3 PO (09:50)
== END 2022-11-24 10:02 | disposition home or self-care (01) ==
LOC: PREOP 05:37
PROVIDERS: ATTEND Internal Medicine
DX: Z01.818 Encounter for other preprocedural examination (principal)

== ENCOUNTER 2022-12-03 06:55 | Day surgery (SDC) | payer BC ==
[~2022-12-03] VITALS: Ht 162.6 cm; Wt 52.2 kg
[~2022-12-03 06:55] MED LIST changes: +AMPH5CAP3 PO; +VORT10TA PO
[2022-12-03] MEDS ORDERED: LACTATED RINGERS 1,000 ML IV STA (07:04)
[2022-12-03 07:17] VITALS: BP 98/63
--- NOTE | 2022-12-03 07:49 | Pre-Op Note & Conscious Sedat ---
Pre-Operative Progress Note Date H&P Reviewed: Dec 03, 2022 Time H&P Reviewed: 07:49 History & Physical: H&P Reviewed, Patient Examed, No changes noted Pre-Op Diagnosis: screening Moderate Sedation PreProcedure ASA Score 2 Airway Lungs Heart ASA score ASA 1: a normal healthy patient ASA 2: a patient with a mild systemic disease (mid diabetes, controlled hypertension, obesity ASA 3: a patient with a severe systemic disease that limits activity (angina, COPD, prior Myocardial infarction) ASA 4: a patient with an incapacitating disease that is a constant threat to life (CHF, renal failure) ASA 5: a moribund patient not expected to survive 24 hrs. (ruptured aneurysm) ASA 6: a declared brain- patient whose organs are being harvested. For emergent operations, add the letter E after the classification Mallampati Classification Grade 1 Sedation Plan Analgesia, Amnesia, Plan communicated to team members, Discussed options with patient/fam, Discussed risks with patient/fam The patient is an appropriate candidate to undergo the planned procedure, sedation, and anesthesia. The patient immediately re-assessed prior to indication. JANET GARCÍA MD Dec 03, 2022 07:49
[2022-12-03] MEDS ORDERED: PROPOFOL INJECTION 50 ML IV ONE (09:01)
[2022-12-03 09:25] VITALS: BP 82/50
--- NOTE | 2022-12-03 09:29 | Progress Note-Post Operative ---
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 Anal sphincter tone was normal and the perianal reflexes intact. No abnormalities noted on digital inspection of the anal canal or distal rectal vault. The colonoscope was then inserted into the rectum and under direct visualization advanced to the cecum. The cecum was identified by an indication of the ileocecal valve and cecal strap. Photographic documentation obtained. A careful inspection was made as the colonoscope was withdrawn. Quality the prep was good. There were no evidence for internal or external hemorrhoids and the rectum was unremarkable. Several small sigmoid diverticulum were present without evidence of diverticulitis. No other abnormalities were noted. The descending colon splenic flexure and transverse colon were unremarkable. Diminutive 4 mm sessile umbilicated appearing questionable polyp was noted at the [place] flexure it was photographed and biopsied and ablated with no subsequent blood loss. The remainder the ascending colon was unremarkable save for 1 medium size proximal diverticulum the cecum and ileocecal valve were unremarkable. Assessment 1 questionable umbilicated sessile polyp was removed via hot forceps from the hepatic flexure. Several small sigmoid diverticulum were present and 1 proximal ascending diverticulum without evidence for diverticulitis. No other colonic abnormalities are appreciated. As long as there are no surprises on histopathology report would advocate consideration for repeat screening colonoscopy in 10 years. JANET GARCÍA MD Dec 03, 2022 09:29
[2022-12-03 09:30] VITALS: BP 80/48
[2022-12-03 09:35] VITALS: BP 83/49
[2022-12-03 09:40] VITALS: BP 86/53
--- NOTE | 2022-12-03 09:55 | Anesthesia-General Post-Op ---
MAC Patient Condition Mental Status/LOC: Same as Preop Cardiovascular: Satisfactory Nausea/Vomiting: Absent Respiratory: Satisfactory Pain: Controlled Complications: Absent Post Op Complications Complications None Follow Up Care/Instructions Patient Instructions None needed. Anesthesiology Discharge Order Discharge Order Patient is doing well, no complaints, stable vital signs, no apparent adverse anesthesia problems. No complications reported per nursing. GARIMA RAMOS CRNA Dec 03, 2022 09:55
[2022-12-03 09:58] VITALS: BP 86/53
== END 2022-12-03 10:09 | disposition home or self-care (01) ==
LOC: ENDO 06:55
PROVIDERS: ATTEND Internal Medicine
DX: Z12.11 Encounter for screening for malignant neoplasm of colon (principal); K63.5 Polyp of colon; K57.30 Diverticulosis of large intestine without perforation or abscess without bleeding

== ENCOUNTER → 2023-04-09 | Outpatient (CLI) | payer BC ==
[~2023-04-09] MED LIST changes: +ROPI0.5T37; -ROPI0.5T4
[2023-04-09 15:37] LABS: BASOPHILS # (AUTO) 0.1 10^3/uL (0.0-0.1); BASOPHILS % (AUTO) 1 % (0-10); EOSINOPHILS # (AUTO) 0.3 10^3/uL (0.0-0.3); EOSINOPHILS % (AUTO) 3 % (0-10); HEMATOCRIT 39 % (35-52); LYMPHOCYTES # (AUTO) 1.7 10^3/uL (1.0-4.0); LYMPHOCYTES % (AUTO) 18 % (12-44); MEAN CORPUSCULAR HEMOGLOBIN 30 pg (25-34); MEAN CORPUSCULAR HGB CONC 34 g/dL (32-36); MEAN CORPUSCULAR VOLUME 90 fL (80-99); MEAN PLATELET VOLUME 9.7 fL (9.0-12.2); MONOCYTES # (AUTO) 0.7 10^3/uL (0.0-1.0); MONOCYTES % (AUTO) 7 % (0-12); NEUTROPHILS # (AUTO) 6.7 10^3/uL (1.8-7.8); NEUTROPHILS % (AUTO) 71 % (42-75); PLATELET COUNT 265 10^3/uL (130-400); WHITE BLOOD COUNT 9.4 10^3/uL (4.3-11.0)
[2023-04-09 15:48] LABS: POTASSIUM 4.1 MMOL/L (3.6-5.0)
[2023-04-09 15:49] LABS: CALCIUM 8.4 MG/DL (8.5-10.1)
[2023-04-09 15:50] LABS: TOTAL PROTEIN 6.8 GM/DL (6.4-8.2)
[2023-04-09 15:52] LABS: BILIRUBIN,TOTAL 0.5 MG/DL (0.1-1.0)
[2023-04-09 15:54] LABS: CREATININE SERUM 0.77 MG/DL (0.60-1.30)
== END ==
LOC: LAB 15:18
PROVIDERS: ATTEND Registered Nurse Critical Care Medicine
DX: J15.8 Pneumonia due to other specified bacteria (principal); R06.02 Shortness of breath; R05.1 Acute cough; R09.81 Nasal congestion; R53.83 Other fatigue; R14.0 Abdominal distension (gaseous); G25.81 Restless legs syndrome; H10.9 Unspecified conjunctivitis
CPT/HCPCS: 36415; 80053; 85025; 86738

== ENCOUNTER → 2023-04-26 | Outpatient (CLI) | payer BC ==
[~2023-04-26] MED LIST changes: -OXYB5TAB13 PO; +OXYB5TAB14 PO
--- NOTE | 2023-04-26 15:37 | Diagnostic Imaging Report ---
3-D bilateral screening mammogram with CAD This study was compared to the prior exams of 04/20/2022, 03/18/2021 and 03/17/2020. At this time there are no current complaints. The current study was also evaluated with a Computer Aided Detection (CAD) system. FINDINGS: The fibroglandular tissue in both breasts is heterogeneously dense. This does limit the sensitivity of this exam. Overall, there does not appear to have been any significant change when compared to the prior study. No primary or secondary sign of malignancy is noted. IMPRESSION: There is no radiographic evidence for malignancy. ACR BI-RADS Category 1: Negative. Result letter will be mailed to the patient. Note: At least 10% of breast cancer is not imaged by mammography. Dictated by: Dictated on workstation # [id number]
--- NOTE | 2023-04-26 16:09 | Diagnostic Imaging Report ---
EXAMINATION: Chest 2 view HISTORY: Pneumonia COMPARISON: None available. FINDINGS: The lungs are hyperinflated without edema or pneumonia. No pleural effusion or pneumothorax. Heart size is normal. IMPRESSION: 1. Hyperinflated but clear lungs. Dictated by: Dictated on workstation # [id number]
== END ==
LOC: RAD 14:58
PROVIDERS: ATTEND Nurse Practitioner Family
DX: Z12.31 Encounter for screening mammogram for malignant neoplasm of breast (principal)
CPT/HCPCS: 71046; 77063; 77067